=== PATIENT | female | born 1985 | race African-American/Black ===

== ENCOUNTER 2025-04-04 18:44 | Emergency (ER) | payer MEDICAID ==
[~2025-04-04] VITALS: Ht 165.1 cm; Wt 100.0 kg
[2025-04-04 18:47] VITALS: O2SAT 98
[2025-04-04 18:52] VITALS: BP 137/100; PULSE 105; RESP 16; TEMP 36.9; O2SAT 99
[2025-04-04 19:34] LABS: CLARITY URINE CLOUDY (CLEAR); COLOR URINE YELLOW (YELLOW); GLUCOSE URINE NEGATIVE (NEGATIVE); KETONES URINE TRACE (NEGATIVE); LEUKOCYTE ESTERASE URINE TRACE (NEGATIVE); NITRITE URINE POSITIVE (NEGATIVE); OCCULT BLOOD URINE 3+ (NEGATIVE); PH URINE 6.0 (4.5-8.0); PROTEIN URINE 1+ (NEGATIVE); SPECIFIC GRAVITY URINE 1.027 (1.005-1.030); UROBILINOGEN URINE 1.0 E.U./dL (0.2-1.0)
[2025-04-04 19:39] LABS: BASOPHILS % 0.3 % (0.0-2.0); EOSINOPHILS % 2.3 % (0.0-5.0); HEMATOCRIT. 35.1 % (36.0-48.0); HEMOGLOBIN. 11.7 g/dL (12.0-16.0); LYMPHOCYTES % 46.4 % (20.0-50.0); MEAN PLATELET VOLUME 7.1 fl (7.4-10.4); MONOCYTES % 4.6 % (2.0-8.0); NEUTROPHILS % 46.4 % (40.0-76.0); PLATELET 353 x1000/uL (130-400); RED BLOOD CELL COUNT 4.12 mill/uL (4.2-5.4); RED CELL DISTRIBUTION WIDTH 15.1 % (11.6-14.6)
[2025-04-04 19:54] LABS: CREATININE 1.0 mg/dL (0.6-1.0); HCG SCREEN NEGATIVE; UREA NITROGEN BLOOD 12 mg/dL (9-23)
[2025-04-04 20:10] LABS: BACTERIA URINE 4+; RBC URINE TNTC /hpf (0-2); SQUAMOUS EPITHELIAL CELL URINE 1+ /lpf (RARE/1+); WBC URINE 0-2 /hpf (0-2)
[2025-04-04 20:25] LABS: B-HCG QUANTITATIVE < 1 mIU/mL (<6)
[2025-04-04] MEDS ORDERED: SULF1TAB48 MT (20:29)
== END 2025-04-04 21:18 | disposition home or self-care (01) ==
LOC: ER 18:44
DX: N39.0 Urinary tract infection, site not specified (principal); N93.8 Other specified abnormal uterine and vaginal bleeding; F19.90 Other psychoactive substance use, unspecified, uncomplicated; Z55.6 Problems related to health literacy; Z79.899 Other long term (current) drug therapy
CPT/HCPCS: 36415; 80048; 81003; 81025; 84702; 84703; 85025; 86850; 86900; 99283